=== PATIENT | male | born 1990 | race American Indian/Alaskan Native ===

== ENCOUNTER 2018-07-11 20:00 | Emergency (ER) | payer OTHER ==
[2018-07-11 20:08] VITALS: BP 140/84
--- NOTE | 2018-07-11 20:08 | Emergency Department Report ---
Blank Doc - Documentation Documentation: This is a 27-year-old male that presents with right wrist pain s/p fall. This initial assessment/diagnostic orders/clinical plan/treatment(s) is/are subject to change based on patient's health status, clinical progression and re- assessment by fellow clinical providers in the ED. Further treatment and workup at subsequent clinical providers discretion. Patient/guardians urged not to elope from the ED as their condition may be serious if not clinically assessed and managed. Initial orders include: 1- Patient sent to [facility] for further evaluation and treatment 2- xray
--- NOTE | 2018-07-11 21:19 | XRay Report ---
PROCEDURE: XR WRIST 3+V RT TECHNIQUE: Right wrist radiographs, including AP, lateral, and oblique views. HISTORY: right wrist pain COMPARISONS: None . FINDINGS: Fracture (s) and/or Dislocation(s): None . Alignment: Normal . Joint space(s): Normal . Soft tissues: Normal . Bone mineralization: Normal . Foreign bodies: None . IMPRESSION: Normal Examination . This document is electronically signed by Bill Shabazz MD., Jul 11 2018 09:17:22 PM ET
[2018-07-12] MEDS ORDERED: PERCOCET 5/325 PO ONE (00:43)
[2018-07-12] MEDS ORDERED: ZOFRAN ODT PO ONE (00:43)
[2018-07-12] MEDS ORDERED: IBUPROFEN PO ONE (00:44)
--- NOTE | 2018-07-12 01:35 | Emergency Department Report ---
ED Fall HPI - General Chief Complaint: Extremity Injury, Upper Stated Complaint: RT WRIST INJURY Time Seen by Provider: 07/11/18 20:07 Source: patient Mode of arrival: Ambulatory - History of Present Illness Initial Comments: Patient is a 27-year-old -[place] male with a history of chronic back pain from an old injury who presents to the ED with complaint of acute onset of right wrist pain after he fell off the bed 24 hours ago. Patient states that he is not able to perform an actual range of motion using his right wrist because of pain. Patient denies loss of consciousness, head or neck injuries, dizziness, nausea, vomiting, numbness and tingling over the right arm, syncope or headache. MD Complaint: fall -: Sudden, hour(s) (24) Fall From: out of bed When Fall Occurred: 24 hours PASTE [employer] Fall Witnessed: yes, by family Place Fall Occurred: home Loss of Consciousness: none Prolonged Down Time?: no Symptoms Prior to Fall: none Location: other (right wrist , right arm) Location - Extremities: Right: Shoulder, Arm, Forearm (wrist) Severity: severe Severity scale (0 -10): 8 Quality: sharp, aching Context: tripped/slipped Associated Symptoms: denies: headache, neck pain, numbness, weakness, chest paint, shortness of breath, abdominal pain, hematuria, unable to walk, lightheaded, confusion - Related Data Previous Rx's Medication Instructions Recorded Last Taken Type Acetaminophen/Codeine [Tylenol 1 tab PO Q6H PRN 3 Days #15 tab 07/12/18 Unknown Rx /Codeine # 3 tab] Cyclobenzaprine [Flexeril] 10 mg PO Q8H PRN #21 tablet 07/12/18 Unknown Rx Ibuprofen [Motrin] 800 mg PO Q8HR PRN #20 tablet 07/12/18 Unknown Rx Allergies Allergy/AdvReac Type Severity Reaction Status Date / Time No Known Allergies Allergy Verified 07/11/18 20:05 ED Review of Systems ROS: Stated complaint: RT WRIST INJURY Other details as noted in HPI Comment: All other systems reviewed and negative Constitutional: no symptoms reported, see HPI. denies: chills, fever, malaise Eyes: as per HPI. denies: eye pain, eye discharge, vision change ENT: as per HPI. denies: ear pain, throat pain, dental pain, hearing loss, congestion Respiratory: no symptoms reported. denies: see HPI, cough, orthopnea, shortness of breath, SOB with exertion Cardiovascular: as per HPI. denies: chest pain, palpitations, dyspnea on exertion, syncope, paroxysmal nocturnal dyspnea Endocrine: no symptoms reported, see HPI. denies: excessive sweating, flushing, intolerance to cold, increased thirst, unexplained weight gain Gastrointestinal: as per HPI. denies: abdominal pain, nausea, diarrhea, hematemesis Genitourinary: as per HPI. denies: urgency, dysuria, frequency, hematuria, testicular pain Musculoskeletal: as per HPI, joint swelling (right wrist), arthralgia (right wrist), myalgia. denies: back pain Skin: as per HPI. denies: rash, lesions, change in color, change in hair/nails Neurological: as per HPI. denies: headache, numbness, paresthesias Psychiatric: as per HPI. denies: anxiety, depression, auditory hallucinations, visual hallucinations Hematological/Lymphatic: as per HPI ED Past Medical Hx - Past Medical History Previous Medical History?: No - Surgical History Past Surgical History?: Yes Additional Surgical History: spinal - Social History Smoking Status: Current Every Day Smoker Substance Use Type: Marijuana - Medications Home Medications: Home Medications Medication Instructions Recorded Confirmed Last Taken Type Acetaminophen/Codeine [Tylenol 1 tab PO Q6H PRN 3 Days #15 tab 07/12/18 Unknown Rx /Codeine # 3 tab] Cyclobenzaprine [Flexeril] 10 mg PO Q8H PRN #21 tablet 07/12/18 Unknown Rx Ibuprofen [Motrin] 800 mg PO Q8HR PRN #20 tablet 07/12/18 Unknown Rx ED Physical Exam - General Limitations: No Limitations General appearance: alert, in no apparent distress - Head Head exam: Present: atraumatic, normocephalic, normal inspection - Eye Eye exam: Present: normal appearance, PERRL, EOMI Pupils: Present: normal accommodation - ENT ENT exam: Present: normal exam, normal orophraynx, mucous membranes moist, TM's normal bilaterally, normal external ear exam - Neck Neck exam: Present: normal inspection, full ROM. Absent: tenderness, lymphade nopathy - Respiratory Respiratory exam: Present: normal lung sounds bilaterally. Absent: respiratory distress, wheezes, chest wall tenderness, accessory muscle use - Cardiovascular Cardiovascular Exam: Present: regular rate, normal rhythm, normal heart sounds - GI/Abdominal GI/Abdominal exam: Present: soft, normal bowel sounds. Absent: hyperactive bowel sounds, hypoactive bowel sounds, organomegaly - Rectal Rectal exam: Present: deferred - Extremities Exam Extremities exam: Present: tenderness (Palpable right wrist tenderness with limited ROM due to pain), normal capillary refill, joint swelling (mildly on right wrist). Absent: calf tenderness - Expanded Upper Extremity Exam Right Shoulder Exam: Present: normal inspection, tenderness Forearm Wrist exam: Present: tenderness, swelling. Absent: full ROM - Back Exam Back exam: Present: normal inspection, full ROM, tenderness (chronic upper posterior thoracic). Absent: CVA tenderness (L), muscle spasm, paraspinal tenderness - Neurological Exam Neurological exam: Present: alert, oriented X3, CN II-XII intact, normal gait, reflexes normal - Psychiatric Psychiatric exam: Present: normal affect - Skin Skin exam: Present: warm, dry, intact, normal color ED Course Vital Signs 07/11/18 20:04 Temperature 98.4 F Pulse Rate 90 Respiratory 18 Rate Blood Pressure 140/84 O2 Sat by Pulse 98 Oximetry - Reevaluation(s) Reevaluation #1: 07/12/18 01:37 Patient is alert and oriented 3 and is not in distress. Patient was treated for pain in the ED and right wrist x-ray shows no acute fractures or subluxations. Patient's right wrist was splinted with the Velcro splint on the patient discharged home on pain medications and muscle relaxants, and advised to follow-up with his primary care physician in 5-7 days for reevaluation. Patient advised return to the ED immediately if symptoms get worse. ED Medical Decision Making - Radiology Data Radiology results: report reviewed, image reviewed No acute fracture of right wrist - Medical Decision Making Patient is alert and oriented 3 and is not in distress with normal vital signs. Right wrist x-ray showed no acute fractures. The patient was treated for pain in the ED and the right wrist was splinted with a Velcro splint. Patient discharged home on pain medications and advised to follow up with his primary care physician in 5-7 days for reevaluation or return to the ED immediately if symptoms get worse. - Differential Diagnosis right wrist fracture, right shoulder muscle strain, wrist sprain Critical care attestation.: If time is entered above; I have spent that time in minutes in the direct care of this critically ill patient, excluding procedure time. ED Disposition Clinical Impression: Sprain of right wrist Qualifiers: Encounter type: initial encounter Qualified Code(s): S63.501A - Unspecified sprain of right wrist, initial encounter Contusion of right upper arm Qualifiers: Encounter type: initial encounter Qualified Code(s): S40.021A - Contusion of right upper arm, initial encounter Disposition: TO HOME OR SELFCARE Is pt being admited?: No Does the pt Need Aspirin: No Condition: Stable Instructions: Wrist Sprain (ED), Shoulder Sprain (ED), Musculoskeletal Pain (ED) Additional Instructions: Take medications with food, drink plenty of fluids and follow up with your primary care physician in 5-7 days for reevaluation, return to the ED immediately if symptoms get worse. Prescriptions: Cyclobenzaprine [Flexeril] 10 mg PO Q8H PRN #21 tablet PRN Reason: Spasms Ibuprofen [Motrin] 800 mg PO Q8HR PRN #20 tablet PRN Reason: Pain , Severe (7-10) Acetaminophen/Codeine [Tylenol /Codeine # 3 tab] 1 tab PO Q6H PRN 3 Days #15 tab PRN Reason: Pain , Severe (7-10) Referrals: FER ADAMS MD [Primary Care Provider] - 3-5 Days Time of Disposition: 01:42 Print Language: BAHAMIAN
== END 2018-07-12 01:50 | disposition home or self-care (01) ==
LOC: ED 20:00
DX: S63.501A Unspecified sprain of right wrist, initial encounter (principal); S40.021A Contusion of right upper arm, initial encounter; F17.200 Nicotine dependence, unspecified, uncomplicated; F12.10 Cannabis abuse, uncomplicated; W06.XXXA Fall from bed, initial encounter; Y93.89 Activity, other specified; Y92.098 Other place in other non-institutional residence as the place of occurrence of the external cause; Y99.8 Other external cause status
CPT/HCPCS: Q0162